=== PATIENT | female | born 1995 | race Caucasian/White ===

== ENCOUNTER 2016-12-20 01:05 | Emergency (ER) | payer OTHER ==
[~2016-12-20] VITALS: Ht 160 cm; Wt 47.0 kg
[2016-12-20 01:18] VITALS: TEMP 37.1; Ht 160 cm; Wt 47.0 kg
[2016-12-20] MEDS ORDERED: TROLAMINE SALICYLATE 10% CRM 255 APPLN/85 GM TUBE EXT STA (02:04)
[2016-12-20 02:18] VITALS: BP 112/61; PULSE 63; O2SAT 100
--- NOTE | 2016-12-20 03:49 | EMERGENCY ROOM VISIT NOTE ---
ED Visit Note First contact with patient: 01:21 CHIEF COMPLAINT: knee pain HISTORY OF PRESENT ILLNESS: This 21 yo patient presents to the emergency department with friends after sustaining an injury to the right knee after running on it today. Patient has a history of jumpers knee when she was doing dance. The patient denies any other injuries besides their knee. The patient denies swelling or bruising. There is pain below the knee. They rate the pain as mid and 4/10. The patient states they are able to walk on it. No numbness or tingling. No ankle, foot or hip pain. REVIEW OF SYSTEMS: A 6 system review of systems was completed with positives and pertinent negatives listed in the HPI. ALLERGIES: none MEDICATIONS: none PMH: knee issues SOCIAL HISTORY: no drug use PHYSICAL EXAM: Vital Signs: Reviewed Nurse's notes, vital signs stable. GENERAL : Pleasant female, no acute distress, but appears in pain, well-developed, well- nourished. MENTAL STATUS: Alert, oriented to person place and time, and cooperative. MUSCULOSKELETAL: The right knee is not swollen. There is no ecchymosis. There is no joint effusion present. The patient is tender just below the patella. There is no joint line tenderness. The patella not subluxate. Range of motion is intact. Strength of the quads and hamstrings is 5/ 5. Jahaira's is negative. Luis's and Anterior Drawer tests are negative. There is no laxity or pain with varus and valgus stressing. The foot and toes are warm and well-perfused. Dorsalis pedis pulse 2+. Sensation to pain and light touch is intact. Capillary refill less than 2 seconds. EMERGENCY DEPARTMENT COURSE: I examined the patient. X-rays of the right knee were reviewed by myself and shows no fracture or dislocation per my interpretation. The patient was advised to avoid activities that cause pain and to take a week off of running. She is advised if symptoms persisted follow- up health services orthopedics or here in the ER sooner for severe pain, numbness, tingling, worsening signs or symptoms or as needed. The patient was discharged home in good condition. DIAGNOSIS: Right knee pain, patellofemoral syndrome of right knee DISCHARGE INSTRUCTIONS: as below Current/Historical Medications No Active Prescriptions or Reported Meds Allergies Coded Allergies: No Known Allergies (Unverified , 12/20/16) Vital Signs Date Time Temp Pulse Resp B/P Pulse Ox O2 Delivery O2 Flow Rate FiO2 12/20/16 02:18 63 18 112/61 100 12/20/16 01:18 37.1 82 18 101/56 97 Room Air Medications Administered Medications (Trade) Dose Ordered Sig/Gamaliel Route Start Time Stop Time Status Last Admin Dose Admin Trolamine Salicylate (Myoflex Cream) 1 appln NOW STAT EXT 12/20/16 02:04 12/20/16 02:06 DC 12/20/16 02:04 1 APPLN Departure Information Impression Primary Impression: Patellofemoral syndrome of right knee Dispostion Home / Self-Care Condition GOOD Prescriptions No Active Prescriptions or Reported Meds Forms HOME CARE DOCUMENTATION FORM, IMPORTANT VISIT INFORMATION Patient Instructions Knee Pain, My [facility] [employer] Additional Instructions Use BenGay cream twice a day to affected area. If your knee causes you pain you while doing an exercise, take a break from the exercise and do not resume that activity until symptom-free. Ibuprofen(Motrin, Advil) may be used for fever or pain. Use 400mg every six hours as needed. Take with food. Avoid using more than 1600mg in a 24 hour period. Do not use 1600mg per day for more than three consecutive days without physician direction. Prolonged inappropriate use can lead to stomach upset or ulcers. This medication can be taken if you need to drive, work, or perform activities which may be dangerous when taking narcotic pain medication. (AND/OR) Acetaminophen(Tylenol) may be used for fever or pain. Use 1000mg every six hours as needed. Avoid using more than 3000mg in a 24 hour period. This medication can be taken if you need to drive, work, or perform activities which may be dangerous when taking narcotic pain medication. Ice compresses for 20 minutes at a time four times daily for 2-3 days. Rest and elevate your injury. Continue current medications. Return to the ER immediately for any numbness, tingling, severe pain, extreme swelling in the extremity or as needed. Call Orthopedics in 5-7 days if symptoms persist to arrange follow up for your injury.
--- NOTE | 2016-12-20 08:05 | DIAGNOSTIC IMAGING REPORT ---
RIGHT KNEE 3 VIEWS HISTORY: Right knee pain. COMPARISON: None. FINDINGS: There is no fracture or dislocation. Soft tissues are unremarkable. No radiopaque foreign bodies. No knee effusion. IMPRESSION: No fractures. Electronically signed by: Cayetano Dunn M.D. 12/20/2016 8:03 AM Dictated Date/Time: 12/20/2016 8:02 AM
== END 2016-12-20 02:20 | disposition home or self-care (01) ==
LOC: C.EDB 01:06 → C.EDC 02:20
DX: M25.861 Other specified joint disorders, right knee (principal); M25.561 Pain in right knee

== ENCOUNTER 2017-04-19 20:42 | Emergency (ER) | payer OTHER ==
[~2017-04-19] VITALS: Ht 157.5 cm; Wt 50.3 kg
[2017-04-19 20:45] VITALS: TEMP 36.4; Ht 157.5 cm; Wt 50.3 kg
[2017-04-19] MEDS ORDERED: METOCLOPRAMIDE HCL INJ 5 MG/ML 2 ML VIAL IV STA (21:37)
[2017-04-19] MEDS ORDERED: SODIUM CHLORIDE 0.9% 1000ML 1,000 ML IV STA (21:37)
[2017-04-19] MEDS ORDERED: DiphenhydrAMINE HCL 50 MG/ML VIAL IV STA (21:37)
[2017-04-19] MEDS ORDERED: KETOROLAC TROMETHAMINE 30 MG/ML VIAL IV STA (21:37)
[2017-04-19 22:19] LABS: CREATININE 0.65 mg/dl (0.60-1.20); POTASSIUM 3.7 mmol/L (3.5-5.1)
[2017-04-19 22:20] LABS: CALCIUM 8.8 mg/dl (8.5-10.1)
[2017-04-19 22:21] LABS: BASO % 0.1 %; BASO ABS # 0.01 K/uL (0-0.2); COMPLETE YES; EOS % 0.1 %; IG% 0.3 %; LYMPH ABS # 0.68 K/uL (1.2-3.4); MEAN CELL VOLUME 80.9 fL (80-100); MEAN CORPUSCULAR HEMOGLOBIN 26.5 pg (25-34); MEAN CORPUSCULAR HGB CONC 32.8 g/dl (32-36); MEAN PLATELET VOLUME 9.5 fL (7.4-10.4); MONO % 5.1 %; NEUT % 84.4 %; PLATELET COUNT 256 K/uL (130-400); RED BLOOD COUNT 4.45 M/uL (4.2-5.4)
[2017-04-19 22:29] LABS: PREG INTERNAL NEGATIVE QC NEG CLEAR BACKGROUND; PREG INTERNAL POSITIVE QC POS CONTROL LINE
[2017-04-19] MEDS ORDERED: NAPR-1169 PO (23:57)
[2017-04-20 00:06] LABS: MANUAL MICROSCOPIC REQUIRED? YES; REVIEW REQ? NO; SULFASALICYLIC ACID POS (NEG); URINE APPEARANCE CLOUDY (CLEAR); URINE COLOR RED
[2017-04-20 00:07] LABS: URINE SPECIFIC GRAVITY 1.018 (1.000-1.030)
[2017-04-20 00:08] VITALS: BP 91/52; PULSE 79; O2SAT 100
[2017-04-20 00:19] LABS: URINE RBC >30 /hpf (0-4); URINE WBC >30 /hpf (0-5)
[2017-04-20 00:20] LABS: URINE BACTERIA 1+ (NEG); URINE MUCUS PRESENT (NONE PRSENT)
[2017-04-20 00:22] LABS: ZZUR CULT IF INDIC CLEAN CATCH YES
--- NOTE | 2017-04-20 03:47 | EMERGENCY ROOM VISIT NOTE ---
History First contact with patient: 21:21 Chief Complaint: ABDOMINAL PAIN Stated Complaint: PERIOD PAINS History of Present Illness The patient is a 21 year old female who presents to the Emergency Room with complaints of painful menstrual period today who is a history of painful menstrual cycles. She is not on control. She also complains of nausea. She describes the pain as cramping, ranging in severity 5 out of 10 to the suprapubic region. Patient denies risk for STI's, rectal pain, chest pain, back pain, urinary symptoms, fever, chills, numbness, tingling. Review of Systems See HPI for pertinent positives & negatives. A total of 10 systems reviewed and were otherwise negative. Past Medical/Surgical History None Family History Patient reports no known family medical history. Social History Smoking Status: Never Smoker Alcohol Use: none Drug Use: none Marital Status: single Occupation Status: [employer] student Current/Historical Medications Scheduled Naproxen (Naprosyn), 500 MG PO BID Allergies Coded Allergies: No Known Allergies (Unverified , 04/19/17) Physical Exam Vital Signs Date Time Temp Pulse Resp B/P Pulse Ox O2 Delivery O2 Flow Rate FiO2 04/20/17 00:08 79 17 91/52 100 04/19/17 22:36 71 16 88/47 100 Room Air 04/19/17 20:45 36.4 85 18 90/36 97 Room Air Pain Rating (0-10): 3.0 Physical Exam VITALS: Vitals are noted on the nurse's note and reviewed by myself. Vital signs stable. Patient's blood pressure normally runs a little low per patient GENERAL: Pleasant female, in no acute distress, nondiaphoretic, well-developed well-nourished. SKIN: The skin was without rashes, erythema, edema, or bruising. There is no tenting of the skin. Capillary reflex less than 2 seconds. HEAD: Normocephalic atraumatic. EARS: External auditory canals clear, tympanic membranes pearly webber without erythema or effusion bilaterally. EYES: Pupils equal round and reactive to light and accommodation. Conjunctivae without injection, sclerae without icterus. Extraocular movements intact. NOSE: Patent, turbinates without inflammation or discharge. MOUTH: Mucous membranes moist. Pharynx without erythema or exudate. Uvula midline. Airway patent. Tongue does not deviate. NECK: Supple without nuchal rigidity. No lymphadenopathy. No thyromegaly. Cervical spine is nontender. No JVD. HEART: Regular rate and rhythm without murmurs gallops or rubs. LUNGS: Clear to auscultation bilaterally without wheezes, rales or rhonchi. No dullness to percussion. No retractions or accessory muscle use. ABDOMEN: Positive bowel sounds x 4. Normal tympanic percussion. Soft, nontender, without masses or organomegaly. Kim sign negative. No guarding or rebound tenderness. No CVA tenderness MUSCULOSKELETAL: No muscle atrophy, erythema, or edema noted. NEURO: Patient was alert and oriented to person place and time. Normal sensation to light and sharp touch. No focal neurological deficits. Medical Decision & Procedures Laboratory Results 04/19/17 21:49 Red Blood Count 4.45, Mean Corpuscular Volume 80.9, Mean Corpuscular Hemoglobin 26.5, Mean Corpuscular Hemoglobin Concent 32.8, Mean Platelet Volume 9.5, Neutrophils (%) (Auto) 84.4, Lymphocytes (%) (Auto) 10.0, Monocytes (%) (Auto) 5.1, Eosinophils (%) (Auto) 0.1, Basophils (%) (Auto) 0.1, Neutrophils # (Auto) 5.73, Lymphocytes # (Auto) 0.68, Monocytes # (Auto) 0.35, Eosinophils # (Auto) 0.01, Basophils # (Auto) 0.01 04/19/17 21:49 Test 04/19/17 21:49 04/19/17 23:25 White Blood Count 6.80 K/uL (4.8-10.8) Red Blood Count 4.45 M/uL (4.2-5.4) Hemoglobin 11.8 g/dL (12.0-16.0) Hematocrit 36.0 % (37-47) Mean Corpuscular Volume 80.9 fL (80-100) Mean Corpuscular Hemoglobin 26.5 pg (25-34) Mean Corpuscular Hemoglobin Concent 32.8 g/dl (32-36) Platelet Count 256 K/uL (130-400) Mean Platelet Volume 9.5 fL (7.4-10.4) Neutrophils (%) (Auto) 84.4 % Lymphocytes (%) (Auto) 10.0 % Monocytes (%) (Auto) 5.1 % Eosinophils (%) (Auto) 0.1 % Basophils (%) (Auto) 0.1 % Neutrophils # (Auto) 5.73 K/uL (1.4-6.5) Lymphocytes # (Auto) 0.68 K/uL (1.2-3.4) Monocytes # (Auto) 0.35 K/uL (0.11-0.59) Eosinophils # (Auto) 0.01 K/uL (0-0.5) Basophils # (Auto) 0.01 K/uL (0-0.2) RDW Standard Deviation 34.9 fL (36.4-46.3) RDW Coefficient of Variation 11.9 % (11.5-14.5) Immature Granulocyte % (Auto) 0.3 % Immature Granulocyte # (Auto) 0.02 K/uL (0.00-0.02) Anion Gap 9.0 mmol/L (3-11) Est Creatinine Clear Calc Drug Dose 109.2 ml/min Estimated GFR () 148.1 Estimated GFR (Non- 127.8 BUN/Creatinine Ratio 20.0 (10-20) Calcium Level 8.8 mg/dl (8.5-10.1) Human Chorionic Gonadotropin, Qual NEG (NEG) Urine Color RED Urine Appearance CLOUDY (CLEAR) Urine pH (4.5-7.5) Urine Specific [place] 1.018 (1.000-1.030) Urine Protein POS (NEG) Urine Glucose (UA) (NEG) Urine Ketones (NEG) Urine Occult Blood (NEG) Urine Nitrite (NEG) Urine Bilirubin (NEG) Urine Urobilinogen (NEG) Urine Leukocyte Esterase (NEG) Urine RBC >30 /hpf (0-4) Urine WBC >30 /hpf (0-5) Urine Epithelial Cells >30 /lpf (0-5) Urine Bacteria 1+ (NEG) Urine Mucus PRESENT (NONE PRSENT) Medications Administered Medications (Trade) Dose Ordered Sig/Gamaliel Route Start Time Stop Time Status Last Admin Dose Admin Ketorolac Tromethamine (Toradol Inj) 30 mg NOW STAT IV 04/19/17 21:37 04/19/17 21:38 DC 04/19/17 21:51 30 MG Metoclopramide HCl (Reglan Inj) 5 mg NOW STAT IV 04/19/17 21:37 04/19/17 21:38 DC 04/19/17 21:50 5 MG Diphenhydramine HCl 12.5 mg 12.5 mg NOW STAT IV 04/19/17 21:37 04/19/17 21:38 DC 04/19/17 21:51 12.5 MG Sodium Chloride (Nss 1000ml) 1,000 ml @ 999 mls/hr Q1H1M STAT IV 04/19/17 21:37 04/19/17 22:37 DC 04/19/17 21:37 999 MLS/HR ED Course Prior records/ancillary studies reviewed. Triage Nursing notes reviewed. Additional history obtained from friend. The patient's history was concerning for abdominal pain. Differential diagnosis: Etiologies such as dysmenorrhea, appendicitis, diverticulitis, PUD, biliary pathology, UTI, pancreatitis, obstruction, mesenteric ischemia, aortic pathology, infections, inflammatory bowel disease, renal colic, as well as others were entertained. Physical examination findings: As above. ER treatment provided: Toradol, Zofran, IV fluids On reassessment the patient felt better. Diagnostics interpreted by me: The labs revealed no leukocytosis. Stable H&H. Negative hCG Exam and history seem consistent with dysmenorrhea. Patient was strongly encouraged to follow-up family care for reevaluation and for possible control as this can help alleviate some of her menstrual symptoms. Patient did not have acute abdomen on exam. She is well-appearing. She was not . Stable H&H. She denies risk for STI's and does not want testing. Patient was advised to follow-up family care in a few days or here in the ER sooner for abdominal pain, fevers, vomiting, worsening signs or symptoms or as needed. By the evaluation outlined above emergent etiologies such as appendicitis, diverticulitis, PUD, biliary pathology, UTI, pancreatitis, obstruction, mesenteric ischemia, aortic pathology, infections, inflammatory bowel disease, renal colic, as well as others were deemed relatively unlikely. The pt informed about the findings as listed above. All questions were answered and pleased with the treatment. Return instructions were outlined and the patient was discharged in stable condition. Case reviewed with my attending Referral: The patient was referred back to their primary care physician for follow-up in 2 to 3 days for a recheck of the current condition. Medical Decision As above Impression Primary Impression: Dysmenorrhea Departure Information Dispostion Home / Self-Care Condition GOOD Prescriptions Naproxen (Naprosyn) 500 Mg Tab 500 MG PO BID, #20 TAB Prov: Babs Hernandez .MIKE 04/19/17 Forms HOME CARE DOCUMENTATION FORM, IMPORTANT VISIT INFORMATION Patient Instructions My [facility], ED Cramping Menstrual Additional Instructions Naproxen 500 m tablet twice a day as needed for pain. Take with food. Avoid using more than 1000mg in a 24 hour period. Do not use 1000mg per day for more than three consecutive days without physician direction. Prolonged inappropriate use can lead to stomach upset or ulcers. (AND/OR) Acetaminophen(Tylenol) may be used for fever or pain. Use 1000mg every six hours as needed. Avoid using more than 4000mg in a 24 hour period. Rest and drink plenty of fluids as tolerated. Continue current medications. Avoid strenuous activities and anything that worsens your pain. Resume normal activities once your symptoms resolve. Return to the ER immediately for worsening or persistent chest pain, abdominal pain, vomiting, fevers, chest pains, difficulty breathing, worsening of your condition, or as needed. Follow up with your primary physician in 2-3 days for a recheck of your current condition.
== END 2017-04-20 00:11 | disposition home or self-care (01) ==
LOC: C.EDB 20:43
DX: N94.6 Dysmenorrhea, unspecified (principal)

== ENCOUNTER 2017-05-03 15:19 | Emergency (ER) | payer OTHER ==
[~2017-05-03] VITALS: Ht 157.5 cm; Wt 50.3 kg
[~2017-05-03 15:19] MED LIST: NAPR-1169 PO
[2017-05-03 15:22] VITALS: TEMP 36.6; Ht 157.5 cm; Wt 50.3 kg
--- NOTE | 2017-05-03 16:02 | DIAGNOSTIC IMAGING REPORT ---
RIGHT ANKLE 3 VIEWS HISTORY: right ankle injury Right COMPARISON: None. FINDINGS: There is no fracture or dislocation. Mild soft tissue swelling. No radiopaque foreign bodies. IMPRESSION: No fractures. Electronically signed by: Cayetano Dunn M.D. 05/03/2017 4:01 PM Dictated Date/Time: 05/03/2017 3:59 PM
[2017-05-03 16:35] VITALS: BP 109/69; PULSE 70; O2SAT 100
--- NOTE | 2017-05-03 18:46 | EMERGENCY ROOM VISIT NOTE ---
ED Visit Note First contact with patient: 15:27 CHIEF COMPLAINT: Ankle pain HISTORY OF PRESENT ILLNESS: This 21-year-old female patient presents to the emergency department for evaluation of right ankle pain. The patient states that she may have injured herself about 2 weeks ago but has continued to exercise. She has not taken anything [id number] for her discomfort. She went on a several mile hike yesterday, and today she started with worsening pain and swelling. The patient complains of pain along the outside of the ankle. The patient is without pain of the foot. The patient rates the pain as dull and 6/10. The patient is able able to bear weight on the foot. Constant pain, worse with movement, weight bearing, and the dependent position. No knee pain, the patient is able to move their toes. No numbness or weakness of the foot, no laceration. The patient has not had a previous fracture to this ankle. The patient has taken nothing for the pain. The patient denies any other injury. REVIEW OF SYSTEMS: A 6 system review of systems was completed with positives and pertinent negatives listed in the HPI. ALLERGIES: No known allergies MEDICATIONS: No chronic medications PMH: Otherwise healthy SOCIAL HISTORY: Lives [place] PHYSICAL EXAM: Vital Signs: Reviewed Nurse's notes, vital signs stable. GENERAL : Female, no acute distress, but appears in pain, well-developed, well- nourished. MENTAL STATUS: Alert, oriented to person place and time, and cooperative. MUSCULOSKELETAL: The right ankle is swollen and tender over the lateral malleolus, but the skin is intact and there is no ligamentous instability. There is no fifth metatarsal tenderness. There is no tenderness over the rest of the foot. There is no calf or tibia/fibular tenderness. There is no visual deformity. The foot and toes are warm and well-perfused. Dorsalis pedis pulse 2+. Sensation to pain and light touch is intact. Capillary refill less than 2 seconds. RIGHT ANKLE 3 VIEWS HISTORY: right ankle injury Right COMPARISON: None. FINDINGS: There is no fracture or dislocation. Mild soft tissue swelling. No radiopaque foreign bodies. IMPRESSION: No fractures. EMERGENCY DEPARTMENT COURSE: Physical exam and history were performed. Nursing notes and EMR were reviewed. The patient appears to have off and on ankle pain for the past few weeks. She does not report a distinct injury or trauma. X-rays were obtained and do not show evidence of acute fracture or bony abnormality. I suspect the patient's discomfort is likely related to use/ overuse. The patient was educated on conservative measures. She does not wish for crutches, and was agreeable to an Dharmesh wrap. She is to use [id number] analgesics and should follow with her PCP or with orthopedics with any ongoing or persisting issues. The patient was pleased with plan of care and rated her discomfort a 1/10 at the time of departure. Current/Historical Medications No Active Prescriptions or Reported Meds Allergies Coded Allergies: No Known Allergies (Unverified , 04/19/17) Vital Signs Date Time Temp Pulse Resp B/P (MAP) Pulse Ox O2 Delivery O2 Flow Rate FiO2 05/03/17 16:35 70 16 109/69 100 05/03/17 15:22 36.6 68 20 101/60 98 Room Air Departure Information Impression Primary Impression: Injury of right ankle Dispostion Home / Self-Care Condition FAIR Prescriptions No Active Prescriptions or Reported Meds Forms HOME CARE DOCUMENTATION FORM, IMPORTANT VISIT INFORMATION Patient Instructions My [facility], ED RICE Additional Instructions You were seen and evaluated today on an emergency basis only. This is not a substitute for, or an effort to provide, complete comprehensive medical care. It is not possible to recognize and treat all injuries or illnesses in a single emergency department visit. For this reason it is recommended that you followup with your primary care physician if symptoms persist. For baseline pain relief you may alternate ibuprofen and acetaminophen every 4 hours for pain control. Take 600 mg ibuprofen (Advil) and then 4 hours later take 1000 mg acetaminophen (Tylenol). Do not take more than 3000 mg acetaminophen in a single day. You are welcome to return to the emergency department anytime with new, worsening, or concerning symptoms.
== END 2017-05-03 16:36 | disposition home or self-care (01) ==
LOC: C.EDB 15:20 → C.EDD 16:36
DX: S99.911A Unspecified injury of right ankle, initial encounter (principal); X58.XXXA Exposure to other specified factors, initial encounter; Y92.89 Other specified places as the place of occurrence of the external cause